=== PATIENT | female | born 1955 | race Caucasian/White ===

== ENCOUNTER 2020-03-07 11:18 | Emergency (ER) | payer MEDICARE, OTHER ==
--- NOTE | 2020-03-07 12:29 | EDM.PDOC ---
ED HPI GENERAL MEDICAL PROBLEM - General Chief Complaint: Back Pain or Injury Stated Complaint: MID BACK PAIN, VOMITING Time Seen by Provider: 03/07/20 11:50 Source of Information: Reports: Patient History Limitations: Reports: No Limitations - History of Present Illness INITIAL COMMENTS - FREE TEXT/NARRATIVE: 64-year-old female with epigastric and mid back pain for the past 4 days, intermittent nausea and vomiting. She had trouble sleeping last night because the pain was bothering her. She feels she cannot take a deep breath but does not feel short of breath, no fevers or chills. Onset: Gradual Duration: Day(s): (Symptoms for the past 4 to 5 days) Location: Reports: Abdomen, Back Associated Symptoms: Reports: Loss of Appetite, Nausea/Vomiting, Other (Feels it is hard to take a deep breath because of discomfort but not short of breath). Denies: Fever/Chills, Shortness of Breath Middle Back Pain Score (Numeric/FACES): 8 - Related Data Allergies Allergy/AdvReac Type Severity Reaction Status Date / Time No Known Allergies Allergy Verified 03/07/20 11:42 Home Meds: Home Meds Multivitamin with Minerals [Multiple Vitamin] 1 tab PO DAILY 03/07/20 [History] Naproxen Sodium [Aleve] 440 mg PO BID 03/07/20 [History] Red Yeast Rice 1 tab PO DAILY 03/07/20 [History] Past Medical History HEENT History: Reports: Impaired Vision Cardiovascular History: Reports: High Cholesterol Musculoskeletal History: Reports: Arthritis - Infectious Disease History Infectious Disease History: Reports: Measles, Mumps - Past Surgical History HEENT Surgical History: Reports: Tonsillectomy GI Surgical History: Reports: Colonoscopy Musculoskeletal Surgical History: Reports: None Social & Family History - Tobacco Use Smoking Status *Q: Never Smoker Second Hand Smoke Exposure: No - Caffeine Use Caffeine Use: Reports: Coffee - Alcohol Use Days Per Week of Alcohol Use: 0 - Recreational Drug Use Recreational Drug Use: No ED ROS GENERAL - Review of Systems Review Of Systems: See Below Constitutional: Reports: Malaise, Decreased Appetite. Denies: Fever, Chills HEENT: Reports: No Symptoms Respiratory: Denies: Shortness of Breath, Cough Cardiovascular: Reports: Chest Pain GI/Abdominal: Reports: Abdominal Pain, Nausea, Vomiting Musculoskeletal: Reports: Back Pain Skin: Reports: No Symptoms Neurological: Reports: No Symptoms Psychiatric: Reports: No Symptoms ED EXAM, GENERAL - Physical Exam Exam: See Below Exam Limited By: No Limitations General Appearance: Alert, No Apparent Distress Eye Exam: Bilateral Eye: Normal Inspection Throat/Mouth: Normal Inspection Head: Atraumatic Respiratory/Chest: No Respiratory Distress, Lungs Clear Cardiovascular: Regular Rate, Rhythm GI/Abdominal: Soft, Tender (Patient does have tenderness to palpation in the epigastric and right upper quadrant, equivocal guarding and no rebound tenderness lower abdomen is nontender) Back Exam: Other (I cannot reproduce pain with percussion of the spine or lateral compression of the chest wall). No: CVA Tenderness (L), Paraspinal Tenderness, Vertebral Tenderness Extremities: Normal Inspection Psychiatric: Normal Affect, Normal Mood Skin Exam: Warm, Dry Course - Vital Signs Last Recorded V/S: Last Vital Signs Temp 97.3 F 03/07/20 11:49 Pulse 74 03/07/20 11:49 Resp 14 03/07/20 11:49 BP 148/90 H 03/07/20 11:49 Pulse Ox 98 03/07/20 11:49 - Orders/Labs/Meds Labs: Laboratory Tests 03/07/20 03/07/20 Range/Units 12:14 12:14 WBC 8.4 (4.5-11.0) K/uL RBC 4.81 (3.30-5.50) M/uL Hgb 13.6 (12.0-15.0) g/dL Hct 41.9 (36.0-48.0) % MCV 87 (80-98) fL MCH 28 (27-31) pg MCHC 33 (32-36) % Plt Count 338 (150-400) K/uL Neut % (Auto) 73 H (36-66) % Lymph % (Auto) 17 L (24-44) % [place] % (Auto) 10 H (2-6) % Eos % (Auto) 0 L (2-4) % Baso % (Auto) 0 (0-1) % Sodium 135 L (140-148) mmol/L Potassium 4.0 (3.6-5.2) mmol/L Chloride 97 L (100-108) mmol/L Carbon Dioxide 29 (21-32) mmol/L Anion Gap 13.0 (5.0-14.0) mmol/L BUN 20 H (7-18) mg/dL Creatinine 0.9 (0.6-1.0) mg/dL Est Cr Clr Drug Dosing 46.24 mL/min Estimated GFR (MDRD) > 60 (>60) Glucose 108 H (74-106) mg/dL Calcium 9.0 (8.5-10.1) mg/dL Total Bilirubin 0.8 (0.2-1.0) mg/dL AST 26 (15-37) U/L ALT 30 (12-78) U/L Alkaline Phosphatase 83 (46-116) U/L Total Protein 7.1 (6.4-8.2) g/dL Albumin 4.2 (3.4-5.0) g/dL Globulin 2.9 (2.3-3.5) g/dL Albumin/Globulin Ratio 1.4 (1.2-2.2) Lipase 145 (73-393) U/L - Re-Assessments/Exams Free Text/Narrative Re-Assessment/Exam: 03/07/20 12:39 A bedside ultrasound was done which shows what appears to be 1 gallbladder polyp but no inflammatory changes, liver and kidneys look normal and there is no free fluid in the abdomen. Lung shadows are normal. CBC CMP and lipase were obtained. 03/07/20 12:45 Labs returned excellent, CBC is normal and CMP is basically normal, lipase is normal. Discussed CT scan but the patient elected to try some muscle relaxers first and I also recommended a proton pump inhibitor in case she has some gastritis or duodenitis. She agreed to take 40 mg of omeprazole daily for the next 5 days and I gave her 15 Flexeril to use for muscle relaxation. She will recheck when she gets home if not improving satisfactorily. Departure - Departure Time of Disposition: 12:53 Disposition: Home, Self-Care 01 Clinical Impression: Thoracic back pain Qualifiers: Chronicity: acute Back pain laterality: bilateral Qualified Code(s): M54.6 - Pain in thoracic spine Abdominal pain Qualifiers: Abdominal location: upper abdomen, unspecified Qualified Code(s): R10.10 - Upper abdominal pain, unspecified - Discharge Information Instructions: Abdominal Pain, Adult, [id number] Referrals: PCP,None [Primary Care Provider] - Forms: ED Department Discharge Care Plan Goals: Take 40 mg of omeprazole daily for at least the next 5 to 7 days until you are home and recheck if not improving. Advance diet slowly as tolerated and take one muscle relaxer up to 3 times daily for the next several days. Return anytime if worsening such as difficulty breathing or fever. Sepsis Event Note (ED) - Evaluation Sepsis Screening Result: No Definite Risk - Focused Exam Vital Signs: Vital Signs Temp Pulse Resp BP Pulse Ox 03/07/20 11:49 97.3 F 74 14 148/90 H 98 03/07/20 11:32 97.3 F 74 14 148/90 H 98
== END 2020-03-07 12:55 | disposition home or self-care (01) ==
LOC: JP.ED 11:18
DX: M54.6 Pain in thoracic spine (principal); R10.13 Epigastric pain; R10.11 Right upper quadrant pain; R11.2 Nausea with vomiting, unspecified; Z98.890 Other specified postprocedural states; Z79.899 Other long term (current) drug therapy
CPT/HCPCS: 36415; 80053; 83690; 85025; 99283; 99284-25